=== PATIENT | male | born 1990 ===

== ENCOUNTER 2017-03-16 12:08 | Emergency (ER) | payer OTHER ==
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
== END 2017-03-16 14:09 | disposition home or self-care (01) ==
LOC: ER 12:08
DX: S20.212A Contusion of left front wall of thorax, initial encounter (principal); V86.99XA Unspecified occupant of other special all-terrain or other off-road motor vehicle injured in nontraffic accident, initial encounter; Y92.009 Unspecified place in unspecified non-institutional (private) residence as the place of occurrence of the external cause